=== PATIENT | male | born 2000 | race African-American/Black ===

== ENCOUNTER 2020-11-11 13:49 | Emergency (ER) | payer OTHER, SELFPAY ==
--- NOTE | 2020-11-11 13:53 | ED.MALEGU ---
HPI - Male Genitourinary General Chief complaint: Urogenital-Male Stated complaint: std Time Seen by Provider: 11/11/20 13:53 Source: patient and RN notes reviewed History of Present Illness HPI Narrative: Patient is a 20-year-old male who presents to the urgent care with complaints of burning with urination. Patient also states that he was told 2 days ago that his partner, from 4 weeks ago was tested positive for chlamydia. Patient states he has been with one other person since then and he did report to her that she needs to be tested and treated for chlamydia as well. Patient states that he has never had an STD in the past . Patient states that the burning with urination has been ongoing for approximately 1 week and he chalked it up to going out of lot with his friends . Patient denies of any pain with intercourse, penile discharge, blood in the urine. No other acute complaints. No acute distress noted. Patient aware of the plan of care. Some parts of this dictation were generated by voice recognition software and may contain typographical and/or grammatical inaccuracies. Related Data Allergies Allergy/AdvReac Type Severity Reaction Status Date / Time shellfish derived Allergy Unknown Verified 11/11/20 14:04 Review of Systems Review of Systems: Narrative: CONSTITUTIONAL: Denies fever, chills, or sweats. EYES: Denies visual changes, redness, or discharge. ENT: Denies rhinorrhea, congestion, sore throat, or otalgia. CARDIOVASCULAR: Denies chest pain, palpitations, or edema. RESPIRATORY: Denies cough or dyspnea. GASTROINTESTINAL: Denies abdominal pain, nausea, vomiting, or diarrhea. GENITOURINARY: Reports of dysuria and positive contact to chlamydia SKIN: Denies rash or itching. MUSCULOSKELETAL: Denies back pain, joint pain, or myalgia. NEUROLOGIC: Denies headache, numbness, or weakness. All other systems reviewed are negative, except as documented in HPI. PMFSH Social History Social History Gender identity (if verbalized by the patient): Male Comments At the time of my signature, I reviewed and agree with the nursing past medical, surgical, social, and family history. There is no relevant family history pertinent to the patient complaint. Exam Narrative: Exam Narrative: GENERAL: This is a well-nourished, well-developed patient, in no apparent distress. HEAD: normocephalic, atraumatic. EYES: PERRL. Sclera clear/white. Vision is grossly intact. EARS: External ears normal NOSE: External nose normal with no obvious nasal discharge, nares without redness, no rhinorrhea. THROAT: Mucous membranes moist, posterior pharynx clear. NECK: Neck supple CARDIOVASCULAR: Regular rate SKIN: warm, intact with no suspicious lesions or rash, good texture and turgor. NEURO: awake, alert, and oriented to person, place and time. There were no obvious focal neurologic abnormalities. EXTREMITIES: No clubbing, cyanosis, or edema. Course Vital Signs Vital signs: Vital Signs Temperature 98.5 F 11/11/20 13:56 Pulse Rate 63 11/11/20 13:56 Respiratory Rate 16 11/11/20 13:56 Blood Pressure 127/55 L 11/11/20 13:56 Pulse Oximetry 100 11/11/20 13:56 Temperature 98.5 F 11/11/20 13:56 Pulse Rate 63 11/11/20 13:56 Respiratory Rate 16 11/11/20 13:56 Blood Pressure 127/55 L 11/11/20 13:56 Pulse Oximetry 100 11/11/20 13:56 Reviewed MDM - Male Genitourinary MDM Narrative Medical decision making narrative: Advised the patient to complete the oral antibiotic regimen as prescribed. Be sure to eat and drink with the medication. Increase your water intake. We will call you within 1 week with your STD test results. Considering you're foregoing treatment of other possible STDs, it is important that you check on your results and obtain any further treatment if necessary. If you develop any increase in symptoms associated with penile discharge, be sure to follow-up at the local health department for further STD check
[2020-11-11 13:56] VITALS: BP 127/55; PULSE 63; RESP 16; TEMP 36.9; O2SAT 100
== END 2020-11-11 14:15 | disposition home or self-care (01) ==
PROVIDERS: Emergency Provider Nurse Practitioner Family
DX: Z20.2 Contact with and (suspected) exposure to infections with a predominantly sexual mode of transmission (principal)
CPT/HCPCS: 87491; 87591; 87661; 99203; G0463

== ENCOUNTER 2024-07-08 00:51 | Emergency (ER) | payer OTHER, SELFPAY ==
--- NOTE | ~2024-07-08 | XR_ITS ---
EXAMINATION: XR shoulder LT min 2V, XR shoulder LT min 2V DATE: 07/08/2024 1:12 AM and 2:16 AM INDICATION: Left shoulder dislocation and subsequent reduction TECHNIQUE: 1. AP, Grashey and transscapular Y views of the left shoulder were obtained. 2. AP and transscapular Y views of the left shoulder were obtained post reduction. COMPARISON: None FINDINGS: Anterior left glenohumeral dislocation on the initial image. A Hill-Sachs fracture trough is seen eva ng the posterolateral aspect of the left humeral head on the initial transscapular Y radiograph. No o ther fractures identified. Mild acromioclavicular osteoarthritis with small inferiorly directed osteo phytes. The dislocated humeral joint is been successfully reduced on the subsequent images with minim al left glenohumeral joint space. IMPRESSION: 1. Successful reduction of an anterior left glenohumeral dislocation. 2. Hill-Sachs fracture trough along the posterolateral left humeral head. Reviewed, dictated and finalized at location A. ITE COUNTERTOP INSTALLER IMPRESSION: 1. Successful reduction of an anterior left glenohumeral dislocation. 2. Hill-Sachs fracture trough along the posterolateral left humeral head.
[2024-07-08 01:22] VITALS: BP 140/75; PULSE 71; RESP 17; TEMP 36.5; O2SAT 97
--- NOTE | 2024-07-08 02:12 | ED_ITS ---
HPI - Extremity Injury (Upper) General Chief Complaint: Extremity Injury, Upper Stated Complaint: possible L shoulder dislocation Time Seen by Provider: 07/08/24 01:47 Source: patient Mode of arrival: ambulatory Limitations: no limitations History of Present Illness HPI narrative: This is a 24-year-old male who presents to the ED for chief complaint of left shoulder injury while working at a local [employer]. 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 States that a friend tried to separate them and caused an injury to his left shoulder. He feels it is dislocated. Denies any further injury. Denies numbness, weakness. Denies history of shoulder dislocations or injuries to this shoulder. Related Data Allergies Allergy/AdvReac Type Severity Reaction Status Date / Time shellfish derived Allergy Unknown Verified 07/08/24 00:52 Review of Systems Review of Systems: All systems as dictated in [facility] Social History Social History Gender identity (if verbalized by the patient): Male Exam Narrative: GENERAL: Well-appearing, well-nourished, and in no acute distress. HEAD: Normocephalic, atraumatic. EYES: PERRLA and EOMI. ENT: Nares clear, no rhinorrhea or epistaxis. Mucous membranes moist. Oropharynx without tonsillar hypertrophy exudate or other lesions. NECK: Supple. No adenopathy or masses. CHEST: No respiratory distress. Clear to auscultation. No wheezes rales or rhonchi HEART: Regular rate and rhythm. No murmur heard. Normal peripheral pulses. ABDOMEN: Soft, nontender, nondistended, normal active bowel sounds. MSK: Obvious deformity to the left shoulder. Significantly reduced active r yessi of motion. Neurovascularly intact distally. SKIN: Warm, dry, no rash. NEURO: Alert and oriented x4. No focal deficits. PSYCH: Normal mood and affect. Course Vital Signs Vital signs: Vital Signs Temperature 97.7 F 07/08/24 01:22 Pulse Rate 71 07/08/24 01:22 Respiratory Rate 17 07/08/24 01:22 Blood Pressure 140/75 07/08/24 01:22 Pulse Oximetry 97 07/08/24 01:22 Oxygen Delivery Room Air 07/08/24 01:22 Temperature 97.7 F 07/08/24 01:22 Pulse Rate 71 07/08/24 01:22 Respiratory Rate 17 07/08/24 01:22 Blood Pressure 140/75 07/08/24 01:22 Pulse Oximetry 97 07/08/24 01:22 Oxygen Delivery Room Air 07/08/24 01:22 Procedures Nerve Block Nerve Block 1: Nerve block date: 07/08/24 Nerve block time: 02:19 Time out performed: Yes Local Anesthetic: lidocaine 1% and with epi Amount of anesthesia used (mL): 10 Side: left Nerve Blocks: other (Interscalene) Procedure Successful: Yes Patient Tolerated Procedure: well Complications: none Orthopedic Joint Reduction Joint #1: Orthopedic Joint Reduction Date: 07/08/24 Orthopedic Joint Reduction Time: 02:19 Time Out Performed: Yes Side: left Joint Reduction Location: shoulder Analgesia: nerve block Pre-Procedure Neuro Vascular Exam: normal Local Anesthesia: lidocaine 1% and with epi Amount of anesthesic used (mL): 10 Shoulder Technique Used (if applicable): traction/counter-traction Post-reduction neuro exam: intact Post-reduction vascular: intact Post Reduction X-Ray Obtained: Yes Post Reduction X-Ray Results: reduced Splint Applied: Yes Patient Tolerated Procedure: well MDM - Extremity Injury (Upper) MDM Narrative Medical decision making narrative: This is a 24-year-old male who presents to the ED for shoulder dislocation on the left. Vitals are normal. Exam is remarkable for the above. Initial x-ray show left shoulder dislocation but no fracture. Patient was given interscalene block with good anesthesia effect. The shoulder was reduced easily with traction counter traction. Post reduction x-rays show successful reduction. Shoulder immobilizer placed. Ortho referral given. Patient will be discharged in stable condition. Supportive measures discussed and return precautions given. Patient is understanding and agreeable with plan for discharge with PCP/orthopedic follow-up. Discharge Plan Discharge Clinical Impression: Shoulder dislocation Patient Disposition: Home, Self-Care Condition: Stable Instructions: Antibiotic Form Additional Instructions: Your exam and imaging today showed shoulder dislocation. Was successfully reduced here in the ER. If you have any new or worsening symptoms please return to the ER for further ev aluation. Patient Language: Comoran Prescriptions: No Action doxycycline monohydrate 100 mg capsule 100 mg PO BID 7 Days Qty: 14 0RF Follow-up/Referrals: Barrera Washington MD [Physician] - PHYSICIAN,MAJOR APPLIANCE ASSEMBLY SUPERVISOR [Primary Care Provider] - Time of Disposition: 02:33
[2024-07-08 03:06] VITALS: BP 122/72; PULSE 77; RESP 18; O2SAT 100
--- OUTSIDE RECORDS SUMMARY | 2024-07-15 00:55 | XMS_ITS | Referral Summary ---
Author Organization [facility] [place] [address] Address [address] [place] [id number] Care Team Providers Care Weeder Name Role Phone Marie Bansal MD Primary Care Provider Allergies No known active allergies Medications No known medications Active Problems Problem Noted Date Diagnosed Date Gynecomastia, male 07/27/2022 Social History Tobacco Use Types Packs/Day Years Used Date Smoking Tobacco: Never Smokeless Tobacco: Never Tobacco Cessation:Counseling Given: Yes PHQ-2 Answer Date Recorded PHQ-2 Total Score (If total score is 3 or more points, staff should administer the PHQ-9) 0 07/26/2022 Sex and Gender Information Value Date Recorded Sex Assigned at Not on file Legal Sex Male 3:00 PM DOUGHNUT GLAZIER Gender Identity Not on file Sexual Orientation Not on file Last Filed Vital Signs Vital Sign Reading Time Taken Comments Blood Pressure 116/70 07/26/2022 2:51 PM DOUGHNUT GLAZIER Pulse 74 07/26/2022 2:51 PM DOUGHNUT GLAZIER Temperature 36.9 ??C (98.5 ??F) 06/19/2021 11:[address] Respiratory Rate 16 06/19/2021 11:31 AM DOUGHNUT GLAZIER Oxygen Saturation 98% 06/19/2021 11:31 AM DOUGHNUT GLAZIER Inhaled Oxygen Concentration - - Weight 88.9 kg (196 lb) 07/26/2022 2:51 PM DOUGHNUT GLAZIER Height 185.4 cm (6' 1 ) 07/26/2022 2:51 PM DOUGHNUT GLAZIER Body Mass Index 25.86 07/26/2022 2:51 PM DOUGHNUT GLAZIER Plan of Treatment Not on file Insurance (Home) (Work) [address] [id number] [employer] [id number] Care Teams Weeder Relationship Specialty Start Date End Date Marie Bansal MD PCP - General Family Practice 07/26/22
--- OUTSIDE RECORDS SUMMARY | 2024-07-15 00:55 | XMS_ITS | Encounter Summary ---
Author Organization [facility] Address [address] [facility] [address] [place] [id number] Care Team Providers Care Accounting Manager Cpa Name Role Phone Marie Bansal MD Primary Care Provider Reason for Visit * Reason Comments Establish Care Patient is being see n to establish care. Patient reports he noticed he was getting a growth under his left nipple about yrs ago. It has been getting bigger and is now tender. He is now getting one under his right side. Noticed the right side about 2yrs ago. It is smaller than the left and just as tender. Encounter Details Date Type Department Care Team (Late st Contact Info) Description 07/26/2022 2:45 PM BUSINESS SUPPORT MANAGER Office Visit [facility] Primary Care at [address] [id number] Marie Bansal MD [address] [place] [address] [address] [place] [address] Encounter for general adult medical examination with abnormal findings (Primary Dx); Gynecomastia, male Social History Tobacco Use Types Packs/Day Years Used Date Smoking Tobacco: Never Smokeless Tobacco: Never Tobacco Cessation:Counseling Given: Yes PHQ-2 Answer Date Recorded PHQ-2 Total Score (If total score is 3 or more points, staff should administer the PHQ-9) 0 07/26/2022 Sex and Gender Information Value Date Recorded Sex Assigned at Not on file Legal Sex Male 3:00 PM BUSINESS SUPPORT MANAGER Gender Identity Not on file Sexual Orientation Not on file documented as of this encounter Last Filed Vital Signs Vital Sign Reading Time Taken Comments Blood Pressure 116/70 07/26/2022 2:51 PM BUSINESS SUPPORT MANAGER Pulse 74 07/26/2022 2:51 PM BUSINESS SUPPORT MANAGER Temperature - - Respiratory Rate - - Oxygen Saturation - - Inhaled Oxygen Concentration - - Weight 88.9 kg (196 lb) 07/26/2022 2:51 PM BUSINESS SUPPORT MANAGER Height 185.4 cm (6' 1 ) 07/26/2022 2:51 PM BUSINESS SUPPORT MANAGER Body Mass Index 25.86 07/26/2022 2:51 PM BUSINESS SUPPORT MANAGER documented in this encounter Patient Instructions * Patient Instructions* Marie Bansal MD - 07/26/2022 2:45 PM BUSINESS SUPPORT MANAGER Recommendations For A Healthy Lifestyle Routine Screening: Diabetes and Cholesterol screening every 3-5 years starting at age 35 if normal, yearly if abnormal. Possible screening prior to age 35 if significant risk factors Colonoscopy at age 45, then every 5-10 years depending on results Men 55 -69 years discuss the need for prostate screening with your practitioner. Yearly eye exam Yearly dental exam (preferably every 6 months) Yearly physical exam with your primary care doctor Men age 65-75 who have every smoked should consider one time screening for an abdominal aortic aneurysm (AAA) with ultrasound Immunizations: Yearly Influenza Tetanus, Diphtheria, and Pertussis (Tdap) booster every 10 years Prevnar 20 (strep pneumonia vaccine) after age 65 or at any age if you smoke, have diabetes, or anylung or heart problems. If you do PPSV23, then you may consider getting Prevnar 20 one year later Shingles (Shingrix) vaccine after age 50 - It is a series of 2 shots given 2 to 6 months apart. Cuts risk of shingles by about 90%. Check with your insurance to see if they cover it. Please get vaccination against COVID-19, if not already done. Other Suggestions: Try to get 30 minutes of aerobic exercise daily. Goal is 150 minutes of moderate physical activity a week Maintain a healthy Body Mass Index of 18.5-25. If overweight, please try to work on gradual weight loss through diet and exercise Please wear your seat belt regularly Please wear sunscreen if outside for any prolonged length of time Aim for 1000 - 1200 mg of calcium daily: There are 300 mg of calcium in each serving of yogurt, cheese, milk, and cooked greens Try not to exceed two alcoholic beverage per day Avoid smoking. If you are currently smoking, please stop Please call office during routine office hours if any questions or concerns. Schedule a Follow up Appointment with me in: 1 year for physical NESS SUPPORT MANAGER * Attachments The following attachments cannot be sent through Care Everywhere. * Gynecomastia (Pneumatic System Conveyor Operator) (Sudanese) documented in this encounter Progress Notes * Marie Bansal MD - 07/26/2022 2:45 PM CST Chief Complaint Patient presents with Establish Care Patient is being seen to establish care. Patient reports he noticed he was getting a growth under his left nipple about yrs ago. It has been getting bigger and is now tender. He is now getting one under his right side. Noticed the right side about 2yrs ago. It is smaller than the left and just as tender. SUBJECTIVE: Thomas Busby is a 22 y.o. male new patient here to establish care and to discuss the following. Current Concerns: 1. Left sided spot under nipple. [place] fatty lump and getting slightly bigger. Notes 3.5 yrs ago was doing nutritional supplement with B6 and testosterone booster. No nipple discharge. Has been tender. Causes some emotional stress as he is embrassedby it Exercise: played soccer in past. Stays active and works supplement Nutrition: watches diet some. PMH, PSH, and FamHx all updated and reviewed as indicated No current outpatient medications on file. No current facility-administered medications for this visit. Social History Tobacco Use Smoking status: Never Smokeless tobacco: Never Substance and Sexual Activity Drug use: None Sexual activity: None Alcohol Use: Not on file No Known Allergies REVIEW OF SYSTEMS Constitutional: Denies fever, chills Eyes: no discomfort. Ears, nose, mouth, and throat: Denies nasal discharge, sorethroat Respiratory: Denies cough, dyspnea, wheezing Cardiovascular: Denies chest pain, palpitations Gastrointestinal: Denies abdominal pain, nausea, vomiting, diarrhea, constipation, bloody stools ormelena. Genitourinary: Denies dysuria Skin: Denies recent rashes Hematologic/lymphatic: Denies abnormal bleeding or bruising. Musculoskeletal: Denies myalgias Neurological: Denies numbness, tingling, syncope, dizziness. Denies TIA or stroke-like symptoms Behavioral/Psych: No depression and anxiety. Some stress with work PHQ Screening PHQ-2 Total Score (If total score is 3 or more points, staff should administer the PHQ-9): 0 Endocrine: Denies fatigue OBJECTIVE: Vitals: 07/26/22 1451 BP: 116/70 BP Location: Left arm Patient Position: Sitting Pulse: 74 Weight: 88.9 kg (196 lb) Height: 185.4 cm (6' 1 ) Body mass index is 25.86 kg/m??. General: alert, well appearing, and in no acute distress HEENT: Normocephalic atraumatic. PERRLA, EOMI, no conjunctivitis. Bilateral TM's and external ear canals normal. No cervical adenopathy. Thyroid normal without nodules or thyromegaly. CV exam: regular rate and rhythm, normal S1 and S2, no murmurs, rubs, or gallops appreciated. Respiratory: clear to auscultation bilaterally, no wheezes, rales, or rhonchi, Good aeration. no tachypnea, retractions, or cyanosis Chest wall - patient has an area of circumcised tissue appreciable deep to the bilateral nipples/areola measuring a few inches in diameter. There is minimal tenderness. No nipple discharge. No overlying skin changes Abdominal exam: Soft, non-tender abdomen. No rebound or guarding. No masses or hepatosplenomegaly noted. Neuro: Alert and oriented x 3, Cranial nerves II-XII grossly intact. PERRLA. EOMI. Strength and sensation grossly intact in bilateral upper extremities and bilateral lower extremities. 2+ bilateral patellar reflexes. Grossly non-focal Psych: Normal mood and affect today. Skin: Warm, dry, without significant rash Ext: No cyanosis, clubbing. No peripheral edema. ASSESSMENT & PLAN: Diagnosis Plan 1. Encounter for general adult medical examination with abnormal findings 2. Gynecomastia, male Ambulatory referral to General Surgery Patient has a degree of mild bilateral gynecomastia. Discussed option to obtain diagnostic mammogram to confirm diagnosis or as he wishes to have it removed referral to surgery. Patient would like tosee the surgeon. Referral provided Health Maintenance: Preventative care counseling/screening: Smoking cessation: na Colon cancer screening ([id number]): na Healthy Living Tips Low fat, low cholesterol diet rich in lean proteins, whole grains, fruits and vegetables. Limit fast foods and processed foods ACSM activity recs: 150 minutes/week. 30 minutes most days of the week. Vaccinations updated: Tetanus (Tdap Q 10 yr): He believes he is up to date. He will try to get me shot record Patient believes he completed all required childhood vaccinations and is up-to-date. I encouraged him to get me a copy of his shot record to confirm. He defers any vaccinations today See Goals in chart Advised to call or return if symptoms worsen or fail to improve as expected, or pt develops any other concerning symptoms. An After Visit Summary was printed and given to the patient. F/u in 1 year for physical or sooner PRN. Marie Bansal MD NESS SUPPORT MANAGER documented in this encounter Plan of Treatment Not on file documented as of this encounter Visit Diagnoses Diagnosis Encounter for general adult medical examination with abnormal findings- Primary Gynecomastia, male Hypertrophy of breast documented in this encounter Care Teams Accounting Manager Cpa Relationship Specialty Start Date End Date Marie Bansal MD PCP - General Family Practice 07/26/22 documented as of this encounter
--- OUTSIDE RECORDS SUMMARY | 2024-07-15 00:55 | XMS_ITS | Clinical Summary ---
Author Organization [facility] [place] [address] Address [address] [place] [id number] Care Team Providers Care Journalist Name Role Phone Marie Bansal MD Primary Care Provider Allergies No known active allergies Medications No known medications Active Problems Problem Noted Date Diagnosed Date Gynecomastia, male 07/27/2022 Surgical History Surgery Date Site/Laterality Comments NO PAST SURGERIES Medical History Medical History Date Comments No pertinent past medical history Family History Medical History Relation Name Comments Testicular cancer Father Brain Aneurysm Maternal Grandfather Headache Mother cyst on brain Relation Name Status Comments Father Maternal Grandfather Mother Social History Tobacco Use Types Packs/Day Years Used Date Smoking Tobacco: Never Smokeless Tobacco: Never Tobacco Cessation:Counseling Given: Yes PHQ-2 Answer Date Recorded PHQ-2 Total Score (If total score is 3 or more points, staff should administer the PHQ-9) 0 07/26/2022 Sex and Gender Information Value Date Recorded Sex Assigned at Not on file Legal Sex Male 3:00 PM MANAGER MEDICAL WRITING Gender Identity Not on file Sexual Orientation Not on file Obstetrics History Last Filed Vital Signs Vital Sign Reading Time Taken Comments Blood Pressure 116/70 07/26/2022 2:51 PM MANAGER MEDICAL WRITING Pulse 74 07/26/2022 2:51 PM MANAGER MEDICAL WRITING Temperature 36.9 ??C (98.5 ??F) 06/19/2021 11:[address] Respiratory Rate 16 06/19/2021 11:31 AM MANAGER MEDICAL WRITING Oxygen Saturation 98% 06/19/2021 11:31 AM MANAGER MEDICAL WRITING Inhaled Oxygen Concentration - - Weight 88.9 kg (196 lb) 07/26/2022 2:51 PM MANAGER MEDICAL WRITING Height 185.4 cm (6' 1 ) 07/26/2022 2:51 PM MANAGER MEDICAL WRITING Body Mass Index 25.86 07/26/2022 2:51 PM MANAGER MEDICAL WRITING Plan of Treatment Health Maintenance Due Date Last Done Comments Hepatitis C Screening 1998 DTaP/Tdap/Td Vaccine (1 - Tdap) 2009 Varicella Vaccines (1 of 2 - 13+ 2-dose series) 2011 HPV Vaccines (1 - Male 3-dos e series) 2013 Hepatitis B Screening 02/28/2016 Depression Screening 07/26/2023 07/26/2022 Regular Well Visit/Exam 18-64 07/26/2023 07/26/2022 Covid-19 Vaccine (3 - 2023-2 5 season) 2024 03/05/2021, 02/12/2021 Influenza Vaccine (#1) 2024 Pneumococcal vaccine <65 Aged Out No longer eligible based on patient's age to complete this topic Insurance [employer] [id number] Care Teams Journalist Relationship Specialty Start Date End Date Marie Bansal MD PCP - General Family Practice 07/26/22
--- OUTSIDE RECORDS SUMMARY | 2024-07-15 00:55 | XMS_ITS | Encounter Summary ---
Author Organization [facility] Address [address] [id number] Care Team Providers Care Apple Packing Header Name Role Phone No, Physician Primary Care Provider [phone] Reason for Visit * Reason Comments Sore Throat Encounter Details Date Type Department Care Team (Late st Contact Info) Description 06/19/2021 11:00 AM IN HOUSE CRA Office Visit [facility] Outpatient Center [address] [phone] Radha Madera NP [address] [place] [address] [address] [place], [place] [id number] Viral syndrome (Primary Dx) Social History Tobacco Use Types Packs/Day Years Used Date Smoking Tobacco: Never Assessed Sex and Gender Information Value Date Recorded Sex Assigned at Not on file Legal Sex Male 3:00 PM IN HOUSE CRA Gender Identity Not on file Sexual Orientation Not on file documented as of this encounter Last Filed Vital Signs Vital Sign Reading Time Taken Comments Blood Pressure 120/80 06/19/2021 11:31 AM IN HOUSE CRA Pulse 65 06/19/2021 11:31 AM IN HOUSE CRA Temperature 36.9 ??C (98.5 ??F) 06/19/2021 11:[address] Respiratory Rate 16 06/19/2021 11:31 AM IN HOUSE CRA Oxygen Saturation 98% 06/19/2021 11:31 AM IN HOUSE CRA Inhaled Oxygen Concentration - - Weight 86.2 kg (190 lb) 06/19/2021 11:31 AM IN HOUSE CRA Height 185.4 cm (6' 1 ) 06/19/2021 11:31 AM IN HOUSE CRA Body Mass Index 25.07 06/19/2021 11:31 AM IN HOUSE CRA documented in this encounter Patient Instructions * Patient Instructions* Radha Madera, QUANTITATIVE ANALYST MARKETING - 06/19/2021 11:00 AM IN HOUSE CRA Recommendations and Information The main treatment for respiratory infections of any kind is to rest, eat healthy, and drink plentyof fluids. Cold symptoms will likely last anywhere from 7-10 days with symptoms feeling much worse on days 3-5. Antibiotic medications do not cure a cold nor do antibiotic medications help to shortenthe symptoms of viral illness. The following may help you feel better: ??? Over the counter antihistamine such as loratadine (Claritin) or cetirizine (Zyrtec) to reduce secretions. The D formula includes pseudoephedrine and can be helpful as a decongestant but should not be used if you have a history of high blood pressure. ??? Don't smoke and avoid second hand smoke. ??? Suck on cough drops or hard candies to soothe a dry or sore throat. Cough drops won't stop yourcough, but they may make your throat feel better. ?? Over the counter loratadine (Claritin) or cetirizine (Zyrtec) to reduce secretions. ?? Mucinex to thin secretions ??? Breathe moist air from a humidifier, a hot shower, or a sink filled with hot water. The heat and moisture can help keep mucus in your airways moist so you can cough it out easily. ??? Use nonprescription medicine, such as acetaminophen, ibuprofen, or aspirin, to relieve fever and body aches. Don't give aspirin to anyone younger than age 20. ??? Rest more than usual. ??? Drink plenty of fluids so that you do not become dehydrated and to keep mucous thin. ??? Use an hgcj-zek-tjphyar cough medicine such as Delsym or Robitussin. (Cough medicines may not be safe for young children or for people who have certain health problems.) Cough suppressants may help you to stop coughing. Expectorants, such as Mucinex, can help you bring up mucus when you cough. ??? Follow up with primary care physician in 1 week, or sooner if symptoms worsen. If you experience worsening shortness of breath or fever >101, go to the Emergency Room. Patient Education Viral Syndrome GIS APPLICATION DEVELOPER: Viral syndrome is a term used for symptoms of an infection caused by a virus. Viruses are spread easily from person to person through the air and on shared items. Common symptoms include the following: ?? Fever and chills ?? A runny or stuffy nose ?? Cough, sore throat, or hoarseness ?? Headache, or pain and pressure around your eyes ?? Muscle aches and joint pain ?? Shortness of breath or wheezing ?? Abdominal pain, cramps, and diarrhea ?? Nausea, vomiting, or loss of appetite Call 911 for the following: ?? You have a seizure. ?? You cannot be woken. ?? You have chest pain or trouble breathing. Seek care immediately if: ?? You have a stiff neck, a bad headache, and sensitivity to light. ?? You feel weak, dizzy, or confused. ?? You stop urinating or urinate a lot less than normal. ?? You cough up blood or thick, yellow or green, mucus. ?? You have severe abdominal pain or your abdomen is larger than usual. Contact your healthcare provider if: ?? Your symptoms do not get better with treatment, or get worse, after 3 days. ?? You have a rash or ear pain. ?? You have burning when you urinate. ?? You have questions or concerns about your condition or care. Treatment for viral syndrome may include medicines to manage your symptoms. An illness caused by a virus usually goes away in 10 to 14 days without treatment. Antibiotics are not given for a viral infection. You may need any of the following: ?? Acetaminophen decreases pain and fever. It is available without a doctor's order. Ask how much medicine to take and how often to take it. Follow directions. Acetaminophen can cause liver damage ifnot taken correctly. ?? NSAIDs , such as ibuprofen, help decrease swelling, pain, and fever. NSAIDs can cause stomach bleeding or kidney problems in certain people. If you take blood thinner medicine, always ask your healthcare provider if NSAIDs are safe for you. Always read the medicine label and follow directions. ?? Cold medicine helps decrease swelling, control a cough, and relieve chest or nasal congestion. ?? Saline nasal spray helps decrease nasal congestion. ?? Take your medicine as directed. Contact your healthcare provider if you think your medicine is not helping or if you have side effects. Tell him of her if you are allergic to any medicine. Keep a list of the medicines, vitamins, and herbs you take. Include the amounts, and when and why you take them. Bring the list or the pill bottles to follow-up visits. Carry your medicine list with you in case of an emergency. Manage your symptoms: ?? Drink liquids as directed to prevent dehydration. Ask how much liquid to drink each day and which liquids are best for you. Ask if you should drink an oral rehydration solution (ORS). An ORS has the right amounts of water, salts, and sugar you need to replace body fluids. This may help prevent dehydration caused by vomiting or diarrhea. Do not drink liquids with caffeine. Drinks with caffeine can make dehydration worse. ?? Get plenty of rest to help your body heal. Take naps throughout the day. Ask your healthcare provider when you can return to work and your normal activities. ?? Use a cool mist humidifier to help you breathe easier if you have nasal or chest congestion. Askyour healthcare provider how to use a cool mist humidifier. ?? Eat honey or use cough drops to help decrease throat discomfort. Ask your healthcare provider how much honey you should eat each day. Cough drops are available without a doctor's order. Follow directions for taking cough drops. ?? Do not smoke and stay away from others who smoke. Nicotine and other chemicals in cigarettes andcigars can cause lung damage. Smoking can also delay healing. Ask your healthcare provider for information if you currently smoke and need help to quit. E-cigarettes or smokeless tobacco still contain nicotine. Talk to your healthcare provider before you use these products. ?? Wash your hands frequently to prevent the spread of germs to others. Use soap and water. Use gelhand char dust cleaner and salvager when soap and water are not available. Wash your hands after you use the bathroom, cough, or sneeze. Wash your hands before you prepare or eat food. Follow up with your healthcare provider as directed: Write down your questions so you remember to ask them during your visits. ?? 2017 [employer] Information is for End User's use only and may not be sold, redistributed or otherwise used for commercial purposes. All illustrations and images included in CareNotes?? are the copyrighted property of [employer] Inc. or [employer]. The above information is an dietary aid only. It is not intended as medical advice for individual conditions or treatments. Talk to your doctor, nurse or pharmacist before following any medical regimen to see if it is safe and effective for you. HOUSE CRA HOUSE CRA documented in this encounter Progress Notes * Radha Madera NP - 06/19/2021 11:00 AM CST Images from the original note were not included. Patient ID: Thomas Busby is a 21 y.o. male followed by No, Physician Chief Complaint Patient presents with ??? Sore Throat Patient presents to the clinic with reports of a sore throat for 5 days. Denies fevers, body aches,headaches, vomiting, and diarrhea. He is fully vaccinated against COVID. He has taken mucinex and pain relief medications for his symptoms. He reports no known exposures. Patient had covid 5 weeks ago. Review of Systems Constitutional: Negative for chills and fever. HENT: Positive for sore throat. Negative for congestion, ear pain, postnasal drip and rhinorrhea. Respiratory: Negative for cough, chest tightness, shortness of breath and wheezing. Cardiovascular: Negative for chest pain. Musculoskeletal: Negative for myalgias. Neurological: Negative for headaches. Vitals: 06/19/21 1131 BP: 120/80 BP Location: Left arm Patient Position: Sitting Pulse: 65 Resp: 16 Temp: 36.9 ??C (98.5 ??F) TempSrc: Oral SpO2: 98% Weight: 86.2 kg (190 lb) Height: 185.4 cm (6' 1 ) Recent Results (from the past 24 hour(s)) POCT rapid strep A Collection Time: 06/19/21 11:46 AM Result Value Ref Range Rapid Strep A, POC Negative POC Influenza A/B, COVID-19 antigen Collection Time: 06/19/21 11:51 AM Result Value Ref Range Inflenza A Ag, POC Negative Influenza B Ag, POC Negative COVID-19 Ag POC Presumptive Negative Presumptive Negative, Invalid Physical Exam Vitals reviewed. Constitutional: Appearance: He is well-developed. HENT: Right Ear: Tympanic membrane, ear canal and external ear normal. Tympanic membrane is not injected,erythematous or bulging. Left Ear: Tympanic membrane, ear canal and external ear normal. Tympanic membrane is not injected, erythematous or bulging. Nose: Congestion present. Right Turbinates: Swollen. Left Turbinates: Swollen. Right Sinus: No maxillary sinus tenderness or frontal sinus tenderness. Left Sinus: No maxillary sinus tenderness or frontal sinus tenderness. Mouth/Throat: Lips: [place]. Mouth: Mucous membranes are moist. Pharynx: Uvula midline. Posterior oropharyngeal erythema present. No pharyngeal swelling or oropharyngeal exudate. Tonsils: No tonsillar exudate. 1+ on the right. 1+ on the left. Eyes: Conjunctiva/sclera: Conjunctivae normal. Cardiovascular: Rate and Rhythm: Normal rate and regular rhythm. Pulmonary: Effort: Pulmonary effort is normal. No respiratory distress. Breath sounds: Normal breath sounds. No decreased breath sounds, wheezing or rhonchi. Musculoskeletal: General: Normal range of motion. Lymphadenopathy: Cervical: No cervical adenopathy. Skin: General: Skin is warm and dry. Neurological: Mental Status: He is alert and oriented to person, place, and time. Diagnoses and all orders for this visit: Viral syndrome (Primary) - POCT rapid strep A - POC Influenza A/B, COVID-19 antigen - Throat culture Throat; Future Orders Placed This Encounter Procedures ??? Throat culture Throat Standing Status: Future Standing Expiration Date: 06/19/2022 ??? POCT rapid strep A ??? POC Influenza A/B, COVID-19 antigen Order Specific Question: Is the Patient experiencing symptoms consistent with COVID? Answer: Yes Order Specific Question: Date of Symptom Onset Answer: 06/18/2021 Order Specific Question: Is the patient hospitalized? Answer: No Order Specific Question: Is the patient admitted to an ICU? Answer: No Order Specific Question: Is this the first COVID-19 test for this patient? Answer: No Order Specific Question: Does the patient currently work in a healthcare facility with direct patient contact? Answer: No Order Specific Question: Is the patient a resident of a congregate care or living setting? Answer: No Assessment/Plan -Throat culture sent Recommendations and Information The main treatment for respiratory infections of any kind is to rest, eat healthy, and drink plentyof fluids. Cold symptoms will likely last anywhere from 7-10 days with symptoms feeling much worse on days 3-5. Antibiotic medications do not cure a cold nor do antibiotic medications help to shortenthe symptoms of viral illness. The following may help you feel better: ??? Over the counter antihistamine such as loratadine (Claritin) or cetirizine (Zyrtec) to reduce secretions. The D formula includes pseudoephedrine and can be helpful as a decongestant but should not be used if you have a history of high blood pressure. ??? Don't smoke and avoid second hand smoke. ??? Suck on cough drops or hard candies to soothe a dry or sore throat. Cough drops won't stop yourcough, but they may make your throat feel better. ?? Over the counter loratadine (Claritin) or cetirizine (Zyrtec) to reduce secretions. ?? Mucinex to thin secretions ??? Breathe moist air from a humidifier, a hot shower, or a sink filled with hot water. The heat and moisture can help keep mucus in your airways moist so you can cough it out easily. ??? Use nonprescription medicine, such as acetaminophen, ibuprofen, or aspirin, to relieve fever and body aches. Don't give aspirin to anyone younger than age 20. ??? Rest more than usual. ??? Drink plenty of fluids so that you do not become dehydrated and to keep mucous thin. ??? Use an gmfn-tdh-dckkddv cough medicine such as Delsym or Robitussin. (Cough medicines may not be safe for young children or for people who have certain health problems.) Cough suppressants may help you to stop coughing. Expectorants, such as Mucinex, can help you bring up mucus when you cough. ??? Follow up with primary care physician in 1 week, or sooner if symptoms worsen. If you experience worsening shortness of breath or fever >101, go to the Emergency Room. Lungs CTA, O2 Saturation @98%/RA, low suspicion for pneumonia at this time. Will recommend supportive care for symptoms with f/u precautions including signs/symptoms warranting ER evaluation. ??? Discussed home self-care, follow up needs, and signs and symptoms that warrant immediate medical attention/ER evaluation including worsening fever, increased shortness of breath, severe N/V/D, orany other worrisome symptoms ??? Reviewed isolation/quarantine protocols ??? Discussed symptomatic relief of symptoms ??? Advised to rest and increase oral fluid intake ??? Advised to stay out of work and work release given explaining when patient can return to work Patient Education Viral Syndrome GIS APPLICATION DEVELOPER: Viral syndrome is a term used for symptoms of an infection caused by a virus. Viruses are spread easily from person to person through the air and on shared items. Common symptoms include the following: ?? Fever and chills ?? A runny or stuffy nose ?? Cough, sore throat, or hoarseness ?? Headache, or pain and pressure around your eyes ?? Muscle aches and joint pain ?? Shortness of breath or wheezing ?? Abdominal pain, cramps, and diarrhea ?? Nausea, vomiting, or loss of appetite Call 911 for the following: ?? You have a seizure. ?? You cannot be woken. ?? You have chest pain or trouble breathing. Seek care immediately if: ?? You have a stiff neck, a bad headache, and sensitivity to light. ?? You feel weak, dizzy, or confused. ?? You stop urinating or urinate a lot less than normal. ?? You cough up blood or thick, yellow or green, mucus. ?? You have severe abdominal pain or your abdomen is larger than usual. Contact your healthcare provider if: ?? Your symptoms do not get better with treatment, or get worse, after 3 days. ?? You have a rash or ear pain. ?? You have burning when you urinate. ?? You have questions or concerns about your condition or care. Treatment for viral syndrome may include medicines to manage your symptoms. An illness caused by a virus usually goes away in 10 to 14 days without treatment. Antibiotics are not given for a viral infection. You may need any of the following: ?? Acetaminophen decreases pain and fever. It is available without a doctor's order. Ask how much medicine to take and how often to take it. Follow directions. Acetaminophen can cause liver damage ifnot taken correctly. ?? NSAIDs , such as ibuprofen, help decrease swelling, pain, and fever. NSAIDs can cause stomach bleeding or kidney problems in certain people. If you take blood thinner medicine, always ask your healthcare provider if NSAIDs are safe for you. Always read the medicine label and follow directions. ?? Cold medicine helps decrease swelling, control a cough, and relieve chest or nasal congestion. ?? Saline nasal spray helps decrease nasal congestion. ?? Take your medicine as directed. Contact your healthcare provider if you think your medicine is not helping or if you have side effects. Tell him of her if you are allergic to any medicine. Keep a list of the medicines, vitamins, and herbs you take. Include the amounts, and when and why you take them. Bring the list or the pill bottles to follow-up visits. Carry your medicine list with you in case of an emergency. Manage your symptoms: ?? Drink liquids as directed to prevent dehydration. Ask how much liquid to drink each day and which liquids are best for you. Ask if you should drink an oral rehydration solution (ORS). An ORS has the right amounts of water, salts, and sugar you need to replace body fluids. This may help prevent dehydration caused by vomiting or diarrhea. Do not drink liquids with caffeine. Drinks with caffeine can make dehydration worse. ?? Get plenty of rest to help your body heal. Take naps throughout the day. Ask your healthcare provider when you can return to work and your normal activities. ?? Use a cool mist humidifier to help you breathe easier if you have nasal or chest congestion. Askyour healthcare provider how to use a cool mist humidifier. ?? Eat honey or use cough drops to help decrease throat discomfort. Ask your healthcare provider how much honey you should eat each day. Cough drops are available without a doctor's order. Follow directions for taking cough drops. ?? Do not smoke and stay away from others who smoke. Nicotine and other chemicals in cigarettes andcigars can cause lung damage. Smoking can also delay healing. Ask your healthcare provider for information if you currently smoke and need help to quit. E-cigarettes or smokeless tobacco still contain nicotine. Talk to your healthcare provider before you use these products. ?? Wash your hands frequently to prevent the spread of germs to others. Use soap and water. Use gelhand char dust cleaner and salvager when soap and water are not available. Wash your hands after you use the bathroom, cough, or sneeze. Wash your hands before you prepare or eat food. Follow up with your healthcare provider as directed: Write down your questions so you remember to ask them during your visits. ?? 2017 [employer] Information is for End User's use only and may not be sold, redistributed or otherwise used for commercial purposes. All illustrations and images included in CareNotes?? are the copyrighted property of [employer] or [employer]. The above information is an dietary aid only. It is not intended as medical advice for individual conditions or treatments. Talk to your doctor, nurse or pharmacist before following any medical regimen to see if it is safe and effective for you. Radha Madera NP HOUSE CRA documented in this encounter Plan of Treatment Not on file documented as of this encounter Procedures Procedure Name Priority Date/Time Associated Diagnosis Comments POC INFLUENZA A/B, COVID-19 ANTIGEN Routine 06/19/2021 11:51 AM IN HOUSE CRA Viral syndrome POCT RAPID STREP Routine 06/19/2021 11:4 6 AM IN HOUSE CRA Viral syndrome documented in this encounter Results * Throat culture Throat (06/19/2021 12:09 PM IN HOUSE CRA) Report Final Report: No growth of pathogens. ANANYA OSEGUERA Comment:Testing performed by : [facility], [address] [place]., [address] Throat 06/19/2021 12:0 9 PM IN HOUSE CRA 06/20/2021 2:55 AM IN HOUSE CRA Narrative ANANYA OSEGUERA - 06/21/2021 6:43 AM IN HOUSE CRA Testing performed by [facility] ([phone]). us Radha Madera NP LAB MICROBIOLOGY - GENERAL ORD ERABLES Final Result ANANYA OSEGUERA [address] [place] [address] * POC Influenza A/B, COVID-19 antigen (06/19/2021 11:51 AM IN HOUSE CRA) Influenza A Ag, POC Negative [facility] Influenza B Ag, POC Negative [facility] COVID-19 Ag POC Presumptive Negative Presumptive Negative, Invalid [facility] Nasal 06/19/2021 11:5 1 AM IN HOUSE CRA us Radha Madera NP POINT OF CARE TEST ORDERABLES Final Result [facility] [address] [place] [address] * POCT rapid strep A (06/19/2021 11:46 AM IN HOUSE CRA) Pathologist [facility] Rapid Strep A, POC Negative Swab 06/19/2021 11:4 6 AM IN HOUSE CRA us Radha Madera NP POINT OF CARE TEST ORDERABLES Final Result documented in this encounter Visit Diagnoses Diagnosis Viral syndrome- Primary Unspecified viral infection, in conditions classified elsewhere and of unspecified site Viral syndrome Unspecified viral infection, in conditions classified elsewhere and of unspecified site documented in this encounter Additional Health Concerns Infection Onset Date Last Indicated Resolved Time COVID: Suspected 06/19/2021 06/19/2021 06/19/2021 11:52 AM IN HOUSE CRA documented as of this encounter Care Teams Apple Packing Header Relationship Specialty Start Date End Date No, Physician PCP - General 06/19/21 05/29/22 documented as of this encounter
--- OUTSIDE RECORDS SUMMARY | 2024-07-15 00:55 | XMS_ITS | Encounter Summary ---
Author Organization [facility] Healthcare Address [facility] [place] [address] Care Team Providers Care Senior Internal Auditor Name Role Phone No, Physician Primary Care Provider [phone] Encounter Details Date Type Department Care Team (Late st Contact Info) Description 06/19/2021 9:25 PM TRAFFIC INCIDENT MANAGEMENT MANAGER Lab [address] [address] Viral syndrome Social History Tobacco Use Types Packs/Day Years Used Date Smoking Tobacco: Never Assessed Sex and Gender Information Value Date Recorded Sex Assigned at Not on file Legal Sex Male 3:00 PM TRAFFIC INCIDENT MANAGEMENT MANAGER Gender Identity Not on file Sexual Orientation Not on file documented as of this encounter Miscellaneous Notes * Result Encounter Note - Annita Romero MA - 06/21/2021 11:29 AM TRAFFIC INCIDENT MANAGEMENT MANAGER Patient aware and states understanding FIC INCIDENT MANAGEMENT MANAGER * Result Encounter Note - Radha Madera NP - 06/21/2021 7:44 AM CST Please alert patient of negative strep culture. Patient should continue tylenol/ibuprofen as directed for discomfort and f/u with PCP if symptoms persist. FIC INCIDENT MANAGEMENT MANAGER documented in this encounter Plan of Treatment Not on file documented as of this encounter Procedures Procedure Name Priority Date/Time Associated Diagnosis Comments THROAT CULTURE Routine 06/19/2021 12:09 PM TRAFFIC INCIDENT MANAGEMENT MANAGER Viral syndrome documented in this encounter Results * Throat culture Throat (06/19/2021 12:09 PM TRAFFIC INCIDENT MANAGEMENT MANAGER) Report Final Report: No growth of pathogens. ANANYA OSGEUERA Comment:Testing performed by : [facility], 1 [place]., [address] Throat 06/19/2021 12:0 9 PM TRAFFIC INCIDENT MANAGEMENT MANAGER 06/20/2021 2:55 AM TRAFFIC INCIDENT MANAGEMENT MANAGER Narrative ANANYA OSGEUERA - 06/21/2021 6:43 AM TRAFFIC INCIDENT MANAGEMENT MANAGER Testing performed by [facility] Microbiology Laboratory ([phone]). us Radha Madera NP LAB MICROBIOLOGY - GENERAL ORD ERABLES Final Result ANANYA OSEGUERA [address] Department [place] [address] documented in this encounter Visit Diagnoses Diagnosis Viral syndrome Unspecified viral infection, in conditions classified elsewhere and of unspecified site documented in this encounter Care Teams Senior Internal Auditor Relationship Specialty Start Date End Date No, Physician PCP - General 06/19/21 05/29/22 documented as of this encounter
--- OUTSIDE RECORDS SUMMARY | 2024-07-15 00:55 | XMS_ITS | Encounter Summary ---
Author Organization [facility] Medical Group Address [address] [facility] [address] [place] [address] Care Team Providers Care Automotive Service Professional Name Role Phone Marie Bansal MD Primary Care Provider Reason for Visit * Reason Onset Date Comments Call Back 07/27/2022 Encounter Details Date Type Department Care Team (Late st Contact Info) Description 07/27/2022 Telephone [facility] Medical [facility] Sports Medicine and Primary Care at [address] [place] [address] Marie Bansal MD [address] [place] [address] [address] [place] [address] Call Back Social History Tobacco Use Types Packs/Day Years Used Date Smoking Tobacco: Never Smokeless Tobacco: Never PHQ-2 Answer Date Recorded PHQ-2 Total Score (If total score is 3 or more points, staff should administer the PHQ-9) 0 07/26/2022 Sex and Gender Information Value Date Recorded Sex Assigned at Not on file Legal Sex Male 3:00 PM NURSING INFORMATICS SPECIALIST Gender Identity Not on file Sexual Orientation Not on file documented as of this encounter Miscellaneous Notes * Telephone Encounter - Rachelle Magana MA - 07/30/2022 11:53 AM NURSING INFORMATICS SPECIALIST Talked with the patient about the referral. Gave him Dr. Murdock's information. He will let us know if he needs a different referral. ING INFORMATICS SPECIALIST * Telephone Encounter - Thelma Pollock ATC - 07/27/2022 10:04 AM CST I attempted to contact the pt but was unable to leave a VM. ING INFORMATICS SPECIALIST * Telephone Encounter - Marie Bansal MD - 07/27/2022 9:54 AM NURSING INFORMATICS SPECIALIST We can see if Dr. Murdock with [facility] plastic surgery in [place] can address this issue. Referral placed. Please give pt his office information [facility] - Medical Office Building [address] [place] [address] [address] Phone for Appointments: [phone] Alternatively, we can try the [facility] plastic surgery office at at [facility] ING INFORMATICS SPECIALIST * Telephone Encounter - Sammy Maldonado - 07/27/2022 9:27 AM CST Call Back Caller???s Concern: Monica with [place] [facility] relayed that they received referral but are wanting patient to be seen by plastic surgeon they do not do the Gynecomastia, male (N62) At there location, wanted to relayed back practice. Caller???s Call back #: [phone] Does message need to be routed? Yes-Action Needed ING INFORMATICS SPECIALIST documented in this encounter Plan of Treatment Not on file documented as of this encounter Visit Diagnoses Diagnosis Gynecomastia, male- Primary Hypertrophy of breast documented in this encounter Care Teams Automotive Service Professional Relationship Specialty Start Date End Date Marie Bansal MD PCP - General Family Practice 07/26/22 documented as of this encounter
--- OUTSIDE RECORDS SUMMARY | 2024-07-15 02:06 | XMS_ITS | Encounter Summary ---
Author Organization [facility] Medical Group Address [address] [facility] [address] [place] [address] Care Team Providers Care Engraver Apprentice Decorative Name Role Phone Marie Bansal MD Primary [...] st Contact Info) Description 07/26/2022 2:45 PM MATERIALS SUPERVISOR Office Visit [facility] Primary Care at [address] [address] Marie Bansal MD [address] [place] [address] [address] [place] [address] Encounter for general adult medical [...] on file Legal Sex Male 3:00 PM MATERIALS SUPERVISOR Gender Identity Not on file Sexual Orientation Not on file documented as of this encounter Last Filed Vital Signs Vital Sign Reading Time Taken Comments Blood Pressure 116/70 07/26/2022 2:51 PM MATERIALS SUPERVISOR Pulse 74 07/26/2022 2:51 PM MATERIALS SUPERVISOR Temperature - - Respiratory Rate - - Oxygen Saturation - - Inhaled Oxygen Concentration - - Weight 88.9 kg (196 lb) 07/26/2022 2:51 PM MATERIALS SUPERVISOR Height 185.4 cm (6' 1 ) 07/26/2022 2:51 PM MATERIALS SUPERVISOR Body Mass Index 25.86 07/26/2022 2:51 PM MATERIALS SUPERVISOR documented in this encounter Patient Instructions * Patient Instructions* Marie Bansal MD - 07/26/2022 2:45 PM MATERIALS SUPERVISOR Recommendations For A Healthy Lifestyle Routine Screening: [...] with me in: 1 year for physical RIALS SUPERVISOR * Attachments The following attachments cannot be sent through Care Everywhere. * Gynecomastia (Paper Roll Machine Operator) (Andorran) documented in this encounter Progress Notes * [...] Concerns: 1. Left sided spot under nipple. Willis fatty lump and getting slightly bigger. Notes [...] counseling/screening: Smoking cessation: na Colon cancer screening (-85): na Healthy Living Tips Low fat, low [...] physical or sooner PRN. Marie Bansal MD RIALS SUPERVISOR documented in this encounter Plan of Treatment Not on file documented as of this encounter Visit Diagnoses Diagnosis Encounter for general adult medical examination with abnormal findings- Primary Gynecomastia, male Hypertrophy of breast documented in this encounter Care Teams Engraver Apprentice Decorative Relationship Specialty Start Date End Date Marie Bansal MD PCP - General Family Practice 07/26/22 documented as of this encounter
--- OUTSIDE RECORDS SUMMARY | 2024-07-15 02:06 | XMS_ITS | Encounter Summary ---
Author Organization [facility] Medical Group Address [address] [id number] Care Team Providers Care Bag Tester Name Role Phone No, Physician Primary Care Provider [phone] Reason for Visit * Reason Comments Sore Throat Encounter Details Date Type Department Care Team (Late st Contact Info) Description 06/19/2021 11:00 AM HANDLING TECH Office Visit [facility] Outpatient Center [address] [id number] Radha Madera NP [address] [place] [address] [address] [place], [place] [id number] Viral syndrome (Primary Dx) Social History Tobacco Use Types Packs/Day Years Used Date Smoking Tobacco: Never Assessed Sex and Gender Information Value Date Recorded Sex Assigned at Not on file Legal Sex Male 3:00 PM HANDLING TECH Gender Identity Not on file Sexual Orientation Not on file documented as of this encounter Last Filed Vital Signs Vital Sign Reading Time Taken Comments Blood Pressure 120/80 06/19/2021 11:31 AM HANDLING TECH Pulse 65 06/19/2021 11:31 AM HANDLING TECH Temperature 36.9 ??C (98.5 ??F) 06/19/2021 11:[address] Respiratory Rate 16 06/19/2021 11:31 AM HANDLING TECH Oxygen Saturation 98% 06/19/2021 11:31 AM HANDLING TECH Inhaled Oxygen Concentration - - Weight 86.2 kg (190 lb) 06/19/2021 11:31 AM HANDLING TECH Height 185.4 cm (6' 1 ) 06/19/2021 11:31 AM HANDLING TECH Body Mass Index 25.07 06/19/2021 11:31 AM HANDLING TECH documented in this encounter Patient Instructions * Patient Instructions* Radha Madera, SUBSTATION ELECTRICIAN SUPERVISOR - 06/19/2021 11:00 AM HANDLING TECH Recommendations and Information The main treatment for [...] to keep mucous thin. ??? Use an ieym-qgy-exedbuo cough medicine such as Delsym or Robitussin. [...] the Emergency Room. Patient Education Viral Syndrome SCIENTIFIC RESEARCH MANAGER: Viral syndrome is a term used for [...] others. Use soap and water. Use gelhand dry cleaner when soap and water are not available. Wash your hands after you use the bathroom, cough, or sneeze. Wash your hands before you prepare or eat food. Follow up with your healthcare provider as directed: Write down your questions so you remember to ask them during your visits. ?? 2017 [employer] Information is for End User's use only and may not be sold, redistributed or otherwise used for commercial purposes. All illustrations and images included in CareNotes?? are the copyrighted property of [employer].D.A.M[employer] Inc[employer] or [employer]. The above information is an certified medication aide only. It is not intended as medical advice for individual conditions or treatments. Talk to your doctor, nurse or pharmacist before following any medical regimen to see if it is safe and effective for you. LING TECH LING TECH documented in this encounter Progress Notes * [...] tenderness or frontal sinus tenderness. Mouth/Throat: Lips: [place]. Mouth: Mucous membranes are moist. Pharynx: Uvula [...] to keep mucous thin. ??? Use an dyzh-jza-wzcmmte cough medicine such as Delsym or Robitussin. [...] return to work Patient Education Viral Syndrome SCIENTIFIC RESEARCH MANAGER: Viral syndrome is a term used for [...] others. Use soap and water. Use gelhand dry cleaner when soap and water are not available. Wash your hands after you use the bathroom, cough, or sneeze. Wash your hands before you prepare or eat food. Follow up with your healthcare provider as directed: Write down your questions so you remember to ask them during your visits. ?? 2017 [employer] Information is for End User's use only and may not be sold, redistributed or otherwise used for commercial purposes. All illustrations and images included in CareNotes?? are the copyrighted property of [employer] or [employer]. The above information is an certified medication aide only. It is not intended as medical advice for individual conditions or treatments. Talk to your doctor, nurse or pharmacist before following any medical regimen to see if it is safe and effective for you. Radha Madera NP LING TECH documented in this encounter Plan of Treatment Not on file documented as of this encounter Procedures Procedure Name Priority Date/Time Associated Diagnosis Comments POC INFLUENZA A/B, COVID-19 ANTIGEN Routine 06/19/2021 11:51 AM HANDLING TECH Viral syndrome POCT RAPID STREP Routine 06/19/2021 11:4 6 AM HANDLING TECH Viral syndrome documented in this encounter Results * Throat culture Throat (06/19/2021 12:09 PM HANDLING TECH) Report Final Report: No growth of pathogens. ANANYA OSEGUERA Comment:Testing performed by : [facility], [address] [place]., [address] Throat 06/19/2021 12:0 9 PM HANDLING TECH 06/20/2021 2:55 AM HANDLING TECH Narrative ANANYA OSEGUERA - 06/21/2021 6:43 AM HANDLING TECH Testing performed by [facility] Microbiology Laboratory ([phone]). us Radha Madera NP LAB MICROBIOLOGY - GENERAL ORD ERABLES Final Result ANANYA OSEGUERA [address] [place] [address] * POC Influenza A/B, COVID-19 antigen (06/19/2021 11:51 AM HANDLING TECH) Influenza A Ag, POC Negative [facility] Influenza B Ag, POC Negative [facility] COVID-19 Ag POC Presumptive Negative Presumptive Negative, Invalid [facility] Nasal 06/19/2021 11:5 1 AM HANDLING TECH us Radha Madera NP POINT OF CARE TEST ORDERABLES Final Result [facility] [address] [place] [address] * POCT rapid strep A (06/19/2021 11:46 AM HANDLING TECH) Pathologist [facility] Rapid Strep A, POC Negative Swab 06/19/2021 11:4 6 AM HANDLING TECH us Radha Madera NP POINT OF CARE [...] COVID: Suspected 06/19/2021 06/19/2021 06/19/2021 11:52 AM HANDLING TECH documented as of this encounter Care Teams Bag Tester Relationship Specialty Start Date End Date No, Physician PCP - General 06/19/21 05/29/22 documented as of this encounter
--- OUTSIDE RECORDS SUMMARY | 2024-07-15 02:06 | XMS_ITS | Encounter Summary ---
Author Organization [facility] Medical Group Address [address] [facility] [address] [place] [address] Care Team Providers Care Compound Machine Operator Name Role Phone Marie Bansal MD Primary Care Provider Reason for Visit * Reason Onset Date Comments Call Back 07/27/2022 Encounter Details Date Type Department Care Team (Late st Contact Info) Description 07/27/2022 Telephone [facility] Medical Group Sports Medicine and Primary Care at [address] [place] [address] Marie Bansal MD [address] [place] [address] [address] [place] [address] Call Back Social History Tobacco Use Types Packs/Day Years Used Date Smoking Tobacco: Never Smokeless Tobacco: Never PHQ-2 Answer Date Recorded PHQ-2 Total Score (If total score is 3 or more points, staff should administer the PHQ-9) 0 07/26/2022 Sex and Gender Information Value Date Recorded Sex Assigned at Not on file Legal Sex Male 3:00 PM COOK RESTAURANT Gender Identity Not on file Sexual Orientation Not on file documented as of this encounter Miscellaneous Notes * Telephone Encounter - Rachelle Magana MA - 07/30/2022 11:53 AM COOK RESTAURANT Talked with the patient about the referral. Gave him Dr. Murdock's information. He will let us know if he needs a different referral. RESTAURANT * Telephone Encounter - Thelma Pollock ATC - 07/27/2022 10:04 AM CST I attempted to contact the pt but was unable to leave a VM. RESTAURANT * Telephone Encounter - Marie Bansal MD - 07/27/2022 9:54 AM COOK RESTAURANT We can see if Dr. Murdock with [facility] plastic surgery in [place] can address this issue. Referral placed. Please give pt his office information [facility] - Medical Office Building [address] [place] [address] [address] Phone for Appointments: [phone] Alternatively, we can try the [facility] plastic surgery office at at [facility] RESTAURANT * Telephone Encounter - Sammy Maldonado - 07/27/2022 9:27 AM CST Call Back Caller???s Concern: Monica with [place] surgery relayed that they received referral but are wanting patient to be seen by plastic surgeon they do not do the Gynecomastia, male (N62) At there location, wanted to relayed back practice. Caller???s Call back #: [phone] Does message need to be routed? Yes-Action Needed RESTAURANT documented in this encounter Plan of Treatment Not on file documented as of this encounter Visit Diagnoses Diagnosis Gynecomastia, male- Primary Hypertrophy of breast documented in this encounter Care Teams Compound Machine Operator Relationship Specialty Start Date End Date Marie Bansal MD PCP - General Family Practice 07/26/22 documented as of this encounter
--- OUTSIDE RECORDS SUMMARY | 2024-07-15 02:06 | XMS_ITS | Referral Summary ---
Author Organization [facility] [address] Address [address] [place] [address] Care Team Providers Care Construction Project Assistant Name Role Phone Marie Bansal MD Primary [...] on file Legal Sex Male 3:00 PM POOL PLAYER Gender Identity Not on file Sexual Orientation Not on file Last Filed Vital Signs Vital Sign Reading Time Taken Comments Blood Pressure 116/70 07/26/2022 2:51 PM POOL PLAYER Pulse 74 07/26/2022 2:51 PM POOL PLAYER Temperature 36.9 ??C (98.5 ??F) 06/19/2021 11:[address] Respiratory Rate 16 06/19/2021 11:31 AM POOL PLAYER Oxygen Saturation 98% 06/19/2021 11:31 AM POOL PLAYER Inhaled Oxygen Concentration - - Weight 88.9 kg (196 lb) 07/26/2022 2:51 PM POOL PLAYER Height 185.4 cm (6' 1 ) 07/26/2022 2:51 PM POOL PLAYER Body Mass Index 25.86 07/26/2022 2:51 PM POOL PLAYER Plan of Treatment Not on file Insurance (Home) (Work) [address] [address] [employer] [id number] Care Teams Construction Project Assistant Relationship Specialty Start Date End Date Marie Bansal MD PCP - General Family Practice 07/26/22
--- OUTSIDE RECORDS SUMMARY | 2024-07-15 02:06 | XMS_ITS | Clinical Summary ---
Author Organization [facility] [address] Address [address] [place] [id number] Care Team Providers Care Physical Therapy Teacher Name Role Phone Marie Bansal MD Primary [...] on file Legal Sex Male 3:00 PM NATIONAL SERVICE OFFICER Gender Identity Not on file Sexual Orientation Not on file Obstetrics History Last Filed Vital Signs Vital Sign Reading Time Taken Comments Blood Pressure 116/70 07/26/2022 2:51 PM NATIONAL SERVICE OFFICER Pulse 74 07/26/2022 2:51 PM NATIONAL SERVICE OFFICER Temperature 36.9 ??C (98.5 ??F) 06/19/2021 11:[address] Respiratory Rate 16 06/19/2021 11:31 AM NATIONAL SERVICE OFFICER Oxygen Saturation 98% 06/19/2021 11:31 AM NATIONAL SERVICE OFFICER Inhaled Oxygen Concentration - - Weight 88.9 kg (196 lb) 07/26/2022 2:51 PM NATIONAL SERVICE OFFICER Height 185.4 cm (6' 1 ) 07/26/2022 2:51 PM NATIONAL SERVICE OFFICER Body Mass Index 25.86 07/26/2022 2:51 PM NATIONAL SERVICE OFFICER Plan of Treatment Health Maintenance Due Date [...] age to complete this topic Insurance [employer] [id number] Care Teams Physical Therapy Teacher Relationship Specialty Start Date End Date Marie Bansal MD PCP - General Family Practice 07/26/22
--- OUTSIDE RECORDS SUMMARY | 2024-07-15 02:06 | XMS_ITS | Encounter Summary ---
Author Organization [facility] Healthcare Address [facility] [place] [address] Care Team Providers Care Aesthetician Name Role Phone No, Physician Primary Care Provider [phone] Encounter Details Date Type Department Care Team (Late st Contact Info) Description 06/19/2021 9:25 PM INTERNET AND E BUSINESS PROJECT MANAGER Lab [address] [address] Viral syndrome Social History Tobacco Use Types Packs/Day Years Used Date Smoking Tobacco: Never Assessed Sex and Gender Information Value Date Recorded Sex Assigned at Not on file Legal Sex Male 3:00 PM INTERNET AND E BUSINESS PROJECT MANAGER Gender Identity Not on file Sexual Orientation Not on file documented as of this encounter Miscellaneous Notes * Result Encounter Note - Annita Romero MA - 06/21/2021 11:29 AM INTERNET AND E BUSINESS PROJECT MANAGER Patient aware and states understanding RNET AND E BUSINESS PROJECT MANAGER * Result Encounter Note - Radha Madera NP - 06/21/2021 7:44 AM CST Please alert patient of negative strep culture. Patient should continue tylenol/ibuprofen as directed for discomfort and f/u with PCP if symptoms persist. RNET AND E BUSINESS PROJECT MANAGER documented in this encounter Plan of Treatment Not on file documented as of this encounter Procedures Procedure Name Priority Date/Time Associated Diagnosis Comments THROAT CULTURE Routine 06/19/2021 12:09 PM INTERNET AND E BUSINESS PROJECT MANAGER Viral syndrome documented in this encounter Results * Throat culture Throat (06/19/2021 12:09 PM INTERNET AND E BUSINESS PROJECT MANAGER) Report Final Report: No growth of pathogens. ANANYA OSEGUERA Comment:Testing performed by : [facility], [address] [place]., [address] Throat 06/19/2021 12:0 9 PM INTERNET AND E BUSINESS PROJECT MANAGER 06/20/2021 2:55 AM INTERNET AND E BUSINESS PROJECT MANAGER Narrative ANANYA OSEGUERA - 06/21/2021 6:43 AM INTERNET AND E BUSINESS PROJECT MANAGER Testing performed by [facility] Microbiology Laboratory ([phone]). us Radha Madera NP LAB MICROBIOLOGY - GENERAL ORD ERABLES Final Result ANANYA OSEGUERA [address] Department [place] [address] documented in this encounter Visit Diagnoses Diagnosis Viral syndrome Unspecified viral infection, in conditions classified elsewhere and of unspecified site documented in this encounter Care Teams Aesthetician Relationship Specialty Start Date End Date No, Physician PCP - General 06/19/21 05/29/22 documented as of this encounter
== END 2024-07-08 03:07 | disposition home or self-care (01) ==
LOC: ANHED 02:49
PROVIDERS: Emergency Provider Physician Assistant
DX: S43.015A Anterior dislocation of left humerus, initial encounter (principal); X58.XXXA Exposure to other specified factors, initial encounter
CPT/HCPCS: 23650; 73030; 99285